=== PATIENT | male | born 1960 | race Caucasian/White ===

== ENCOUNTER → 2018-03-08 10:52 | Outpatient (CLI) | payer OTHER, SELFPAY ==
[2016-08-17 17:06] VITALS: BMI 32.9
[2018-03-08 12:02] LABS: Absolute Lymphocyte Count 0.73 X10^3/ul (0.83-4.51); Absolute Neutrophil Count 2.5 X10^3/uL (2.0-7.7); Basophil# 0.03 X10^3/uL; Basophil% 0.8 % (0-1); Eosinophil# 0.08 X10^3/uL; Eosinophils% 2.1 % (0-5); Hematocrit 46.8 % (40-54); Hemoglobin 15.8 g/dl (13.0-16.5); Lymphocyte # 0.73 X10^3/ul (4.0); Lymphocyte % 19.6 % (19-41); Mean Corp Hgb Conc 33.8 g/gl (32-36); Mean Corpuscular Hgb 29.7 pg (27.0-32.0); Mean Platelet Vol. 10.8 fl (6.2-12.0); Monocyte# 0.34 X10^3/uL; Monocyte% 9.1 % (0-10); Neutrophil # 2.54 X10^3/uL (2.7-7.7); Neutrophil % 68.1 % (47-70); Platelet Count 168 K/mm3 (150-450); RBC Distribution Width CV 12.3 % (11.6-14.6); RBC Distribution Width SD 38.9 fl (35.1-43.9); Red Blood Count 5.32 M/mm3 (4.6-6.2); White Blood Count 3.7 K/mm3 (4.4-11.0)
[2018-03-08 12:04] LABS: POSITIVE COUNT NO; POSITIVE DIFFERENTIAL NO; POSITIVE MORPHOLOGY NO
[2018-03-08 12:09] LABS: Color, Urine Yellow (Yellow); Glucose, Dipstick 50 mg/dl (Normal); Ketone-Dipstick Negative (Negative); Leukocyte Esterase-Dipstick Negative /ul (Negative); Nitrite-Dipstick Negative (Negative); Occult Blood-Urine Negative /ul (Negative); Protein-Dipstick Negative (Negative); Specific Gravity, Urine 1.025 (1.002-1.030); Urine Bilirubin Dipstick Negative (Negative); Urine Clarity Clear (Clear); Urine Urobilinogen Normal (Normal)
[2018-03-08 12:17] LABS: Microalbumin,Random Urine 34.3 mg/L (NO RANGE EST.); Microalbumin:Creatinine Ratio 16.4 mg/g CRE (<30 mg/g CRE)
[2018-03-08 12:33] LABS: ALB/GLOB Ratio 1.2 RATIO (0.9-2.4); AST(SGOT) 16 U/L (15-37); Alanine Aminotransfer ALT/SGPT 21 U/L (16-61); Albumin, Serum 3.7 g/dL (3.2-5.0); Alkaline Phosphatase 85 U/L (45-117); Anion Gap 7 (5-15); BUN 14 mg/dL (7-18); BUN/Creat Ratio 20.3 RATIO (10-20); Calcium,Total 8.6 mg/dL (8.5-10.1); Chloride 105 mmol/L (98-107); Cholesterol 193 mg/dL (200); Creatinine, Serum 0.69 mg/dL (0.70-1.30); EST Glomerular Filtration Rate 126 mL/min (>60); Est Glom Filt Rate - Afr Amer 153 mL/min (>60); Globulin 3.1 g/dL (2.2-4.2); Glucose 170 mg/dL (74-106); High Density Lipoprotein 74 mg/dL; Potassium 4.1 mmol/L (3.5-5.1); Protein, Total 6.8 g/dL (6.4-8.2); Sodium Level 140 mmol/L (136-145); Triglycerides 65 mg/dL; Very Low Density Lipoprotein 13 mg/dL (5-40)
[2018-03-08 12:36] LABS: Vitamin D,25 Hydroxy 23.1 ng/mL (29.95-100.01)
[2018-03-11 20:11] LABS: CHOLESTEROL TOTAL 200 mg/dL (100-199); HDL-C 72 mg/dL (>39); HDL-P TOTAL 37.4 umol/L (>=30.5); SMALL LDL-P 171 nmol/L (<=527); TRIGLYCERIDES 66 mg/dL (0-149)
[2018-03-12 10:09] LABS: LDL SIZE 21.4 nm (>20.5); LDL-C 115 mg/dL (0-99); LDL-P 1084 nmol/L (<1000); LP-IR SCORE ** <25 (<=45)
== END ==
LOC: LAB 10:58
PROVIDERS: Family Provider Internal Medicine; PCP Internal Medicine; Referring Provider Nurse Practitioner Gerontology; Visit Provider Nurse Practitioner Gerontology
DX: E11.9 Type 2 diabetes mellitus without complications (principal)
CPT/HCPCS: 36415; 80053; 80061; 81002; 82043; 82306; 82570; 83704; 84443; 85025

== ENCOUNTER 2018-04-29 08:34 | Day surgery (SDC) | payer OTHER, SELFPAY ==
[2018-04-29 09:00] VITALS: BP 141/82; PULSE 61; RESP 16; TEMP 36.3; O2SAT 99; BMI 32.2
[2018-04-29 09:25] LABS: Bedside Glucose 192 mg/dL (70-110)
[2018-04-29 10:15] VITALS: BP 120/72; BP 141/82; PULSE 60; RESP 16; TEMP 36
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
--- NOTE | 2018-04-29 10:19 | OP.ENDO_ITS ---
Patient Name: Mohan Agarwal Procedure Date: 04/29/2018 9:51 AM Date of : 1960 Age: 57 Procedure: Colonoscopy Indications: Screening for colorectal malignant neoplasm Providers: Parminder Christensen MD Medicines: See the Anesthesia note for documentation of the administered medications Patient Profile: This is a 57 year old male. Refer to note in patient chart for documentation of history and physical. Last Colonoscopy: none. The patient's first colonoscopy is today. Complications: No immediate complications. Procedure: Pre-Anesthesia Assessment: - Prior to the procedure, a History and Physical was performed, and patient medications and allergies were reviewed. The patient's tolerance of previous anesthesia was also reviewed. The risks and benefits of the procedure and the sedation options and risks were discussed with the patient. All questions were answered, and informed consent was obtained. Prior Anticoagulants: The patient has taken no previous anticoagulant or antiplatelet agents. ASA Grade Assessment: II - A patient with mild systemic disease. After reviewing the risks and benefits, the patient was deemed in satisfactory condition to undergo the procedure. After I obtained informed consent, the scope was passed under direct vision. Throughout the procedure, the patient's blood pressure, pulse, and oxygen saturations were monitored continuously. The adult colonoscope was introduced through the anus and advanced to the cecum, identified by appendiceal orifice and ileocecal valve. The colonoscopy was performed without difficulty. The patient tolerated the procedure well. The quality of the bowel preparation was good. Scope In: 10:00:02 AM Scope Withdrawal Time 0 hours 6 minutes 3 seconds Scope Out: 10:11:53 AM Total Procedure Duration Time 0 hours 11 minutes 51 seconds Findings: Multiple small and large-mouthed diverticula were found in the sigmoid colon, descending colon, splenic flexure and transverse colon. No biopsies or other specimens were collected for this exam. Non-bleeding internal hemorrhoids were found during retroflexion. The hemorrhoids were mild and small. The perianal and digital rectal examinations were normal. Pertinent negatives include normal prostate (size, shape, and consistency). Impression: - Diverticulosis in the sigmoid colon, in the descending colon, at the splenic flexure and in the transverse colon. No specimens collected. - Non-bleeding internal hemorrhoids. Recommendation: - Discharge patient to home. - Resume previous diet. - Continue present medications. - Repeat colonoscopy in 10 years for screening purposes. - Return to primary care physician PRN. Procedure Code(s): --- Professional --- 37103, Colonoscopy, flexible; diagnostic, including collection of specimen(s) by brushing or washing, when performed (separate procedure) Diagnosis Code(s): --- Professional --- Z12.11, Encounter for screening for malignant neoplasm of colon K64.8, Other hemorrhoids K57.30, Diverticulosis of large intestine without perforation or abscess without bleeding CPT copyright 2017 [employer]. All rights reserved. The codes documented in this report are preliminary and upon concession worker review may be revised to meet current compliance requirements. MD Parminder Romero MD 04/29/2018 10:19:08 AM This report has been signed electronically. Number of Addenda: 0 Note Initiated On: 04/29/2018 9:51 AM
[2018-04-29 10:20] VITALS: BP 105/67; BP 141/82; PULSE 62; RESP 16; O2SAT 92
[2018-04-29 10:25] VITALS: BP 113/69; BP 141/82; PULSE 64; RESP 16; O2SAT 92
[2018-04-29 10:30] VITALS: BP 117/69; BP 141/82; PULSE 54; RESP 16; TEMP 36; O2SAT 95
[2018-04-29 11:06] VITALS: BP 141/82
== END 2018-04-29 11:07 | disposition home or self-care (01) ==
LOC: EN 08:36 → AC 08:37
PROVIDERS: Family Provider Internal Medicine; PCP Internal Medicine; Referring Provider Surgery; Visit Provider Surgery
PROC: 0DJD8ZZ Inspection of Lower Intestinal Tract, Via Natural or Artificial Opening Endoscopic (ICD-10-PCS; CPT 45378; principal; 2018-04-29 09:55)
DX: Z12.11 Encounter for screening for malignant neoplasm of colon (principal); K57.30 Diverticulosis of large intestine without perforation or abscess without bleeding; K64.8 Other hemorrhoids; R73.03 Prediabetes; K21.9 Gastro-esophageal reflux disease without esophagitis; Z79.4 Long term (current) use of insulin; Z87.442 Personal history of urinary calculi; Z79.899 Other long term (current) drug therapy
CPT/HCPCS: 45378; 82962; J7120; J1610

== ENCOUNTER 2020-04-26 09:45 | Emergency (ER) | payer BC, SELFPAY ==
[2020-04-26 09:46] VITALS: BP 151/79; PULSE 64; RESP 16; TEMP 36.1; O2SAT 96; BMI 31.9
[2020-04-26 10:11] VITALS: BP 151/79; PULSE 64; RESP 16; TEMP 36.1; O2SAT 96
--- NOTE | 2020-04-26 10:13 | EKG12_ITS ---
Test Reason : SWOLLEN Blood Pressure : / mmHG Vent. Rate : 063 BPM Atrial Rate : 063 BPM P-R Int : 162 ms QRS Dur : 092 ms QT Int : 400 ms P-R-T Axes : 022 003 033 degrees QTc Int : 409 ms Normal sinus rhythm Normal ECG Confirmed by LINDSAY ROYAL, ROSALINE ([id number]), manuscript editor DHRUV ELY ([id number]) on 04/28/2020 11:08:27 AM Referred By: AMAYA Confirmed By:ROSALINE MONTOYA MD
[2020-04-26 10:31] LABS: Absolute Lymphocyte Count 1.25 X10^3/uL (0.83-4.51); Absolute Neutrophil Count 4.5 X10^3/uL (2.0-7.7); Basophil# 0.08 X10^3/uL; Basophil% 1.2 % (0-1); Eosinophil# 0.13 X10^3/uL; Hematocrit 47.3 % (40-54); Lymphocyte # 1.25 X10^3/ul (4.0); Lymphocyte % 18.9 % (19-41); Mean Corp Hgb Conc 33.8 g/dL (32-36); Mean Corpuscular Hgb 29.5 pg (27.0-32.0); Mean Corpuscular Volume 87.1 fL (80-94); Mean Platelet Vol. 9.9 fl (6.2-12.0); Monocyte% 7.6 % (0-10); NRBC Flagged by Analyzer 0 % (0-5); Neutrophil # 4.53 X10^3/uL (2.7-7.7); Neutrophil % 68.3 % (47-70); Platelet Count 184 K/mm3 (150-450); RBC Distribution Width CV 12.2 % (11.6-14.6); RBC Distribution Width SD 38.7 fl (35.1-43.9); Red Blood Count 5.43 M/mm3 (4.6-6.2); White Blood Count 6.6 K/mm3 (4.4-11.0)
[2020-04-26 10:36] LABS: Bedside Glucose 183 mg/dL (70-110)
[2020-04-26 10:48] LABS: Bacteria 0 SEEN /hpf (None Seen); Mucous, Urine 0 SEEN /hpf (<or=2+); Red Blood Cells-Urine 0 SEEN /hpf (0-5); Squamous Epithelial Cells - UA 0 SEEN /hpf (0-5); White Blood Cells 0 SEEN /hpf (0-5)
[2020-04-26 10:52] LABS: ALB/GLOB Ratio 1.1 RATIO (0.9-2.4); AST(SGOT) 11 U/L (15-37); Alanine Aminotransfer ALT/SGPT 20 U/L (16-61); Albumin, Serum 3.3 g/dL (3.2-5.0); Alkaline Phosphatase 85 U/L (45-117); Anion Gap 6 (5-15); BUN 14 mg/dL (7-18); BUN/Creat Ratio 17.5 RATIO (10-20); Calcium,Total 8.3 mg/dL (8.5-10.1); Chloride 102 mmol/L (98-107); EST Glomerular Filtration Rate 105 mL/min (>60); Est Glom Filt Rate - Afr Amer 127 mL/min (>60); Estimated Creatinine Clearance 97.38 ml/min; Globulin 2.9 g/dL (2.2-4.2); Glucose 192 mg/dL (74-106); Potassium 4.1 mmol/L (3.5-5.1); Protein, Total 6.2 g/dL (6.4-8.2); Sodium Level 138 mmol/L (136-145)
[2020-04-26 10:53] LABS: Color, Urine Yellow (Yellow); Glucose, Dipstick 250 mg/dl (Normal); Ketone-Dipstick Negative (Negative); Leukocyte Esterase-Dipstick Negative /ul (Negative); Nitrite-Dipstick Negative (Negative); Occult Blood-Urine Negative /ul (Negative); Protein-Dipstick Negative (Negative); Specific Gravity, Urine 1.015 (1.002-1.030); Urine Bilirubin Dipstick Negative (Negative); Urine Clarity Clear (Clear); Urine Urobilinogen Normal (Normal)
[2020-04-26 11:04] LABS: Amorphous Sediment 1+
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
[2020-04-26 12:24] VITALS: BP 143/79; PULSE 64; RESP 18; O2SAT 99
== END 2020-04-26 12:25 | disposition home or self-care (01) ==
PROVIDERS: Emergency Provider Emergency Medicine; PCP Internal Medicine
DX: I89.0 Lymphedema, not elsewhere classified (principal); E10.65 Type 1 diabetes mellitus with hyperglycemia; J30.9 Allergic rhinitis, unspecified; E66.9 Obesity, unspecified; Z79.4 Long term (current) use of insulin
CPT/HCPCS: 80053; 81001; 82962; 85025; 93005; 96360; 96361; 99284; J7040; A4216

== ENCOUNTER → 2021-01-06 14:05 | Outpatient (CLI) | payer BC, SELFPAY ==
[2021-01-06 14:13] LABS: Bacteria 0 SEEN /hpf (None Seen); Red Blood Cells-Urine 0 SEEN /hpf (0-5); Squamous Epithelial Cells - UA 0 SEEN /hpf (0-5)
[2021-01-06 14:35] LABS: Erythrocyte Sedimentation Rate 3 mm/hr (0-20)
[2021-01-06 14:39] LABS: Absolute Lymphocyte Count 0.42 X10^3/uL (0.83-4.51); Absolute Neutrophil Count 2.1 X10^3/uL (2.0-7.7); Basophil# 0.01 X10^3/uL; Basophil% 0.4 % (0-1); Hematocrit 49.5 % (40-54); Hemoglobin 16.9 g/dL (13.0-16.5); Lymphocyte # 0.42 X10^3/ul (0.83-4.51); Lymphocyte % 15.2 % (19-41); Mean Corp Hgb Conc 34.1 g/dL (32-36); Mean Corpuscular Hgb 29.8 pg (27.0-32.0); Mean Corpuscular Volume 87.1 fL (80-94); Mean Platelet Vol. 10.5 fl (6.2-12.0); Monocyte# 0.22 X10^3/uL; Monocyte% 7.9 % (0-10); NRBC Flagged by Analyzer 0 % (0-5); Neutrophil # 2.11 X10^3/uL (2.7-7.7); Neutrophil % 76.1 % (47-70); POSITIVE DIFFERENTIAL YES; Platelet Count 115 K/mm3 (150-450); RBC Distribution Width CV 11.9 % (11.6-14.6); RBC Distribution Width SD 38.1 fl (35.1-43.9); Red Blood Count 5.68 M/mm3 (4.6-6.2); White Blood Count 2.8 K/mm3 (4.4-11.0)
[2021-01-06 14:41] LABS: Differential Indicated SCAN CRITERIA MET
[2021-01-06 14:55] LABS: Lactic Acid 1.2 mmol/L (0.4-1.9)
[2021-01-06 14:57] LABS: ALB/GLOB Ratio 0.9 RATIO (0.9-2.4); AST(SGOT) 28 U/L (15-37); Alanine Aminotransfer ALT/SGPT 23 U/L (16-61); Albumin, Serum 3.6 g/dL (3.2-5.0); Alkaline Phosphatase 87 U/L (45-117); Anion Gap 6 (5-15); BUN 12 mg/dL (7-18); BUN/Creat Ratio 12.5 RATIO (10-20); Chloride 100 mmol/L (98-107); Cholesterol 191 mg/dL (200); Creatinine, Serum 0.96 mg/dL (0.70-1.30); EST Glomerular Filtration Rate 85 mL/min (>60); Est Glom Filt Rate - Afr Amer 103 mL/min (>60); Globulin 3.9 g/dL (2.2-4.2); Glucose 118 mg/dL (74-106); High Density Lipoprotein 75 mg/dL; PSA,Total- Diagnostic 0.42 ng/mL (0.0-4.0); Protein, Total 7.5 g/dL (6.4-8.2); Sodium Level 137 mmol/L (136-145); Triglycerides 91 mg/dL; Very Low Density Lipoprotein 18 mg/dL (5-40)
[2021-01-06 15:37] LABS: Hepatitis C Antibody Non-Reactive (Nonreactive); Vitamin D,25 Hydroxy 24.2 ng/mL
[2021-01-06 16:15] LABS: Color, Urine Yellow (Yellow); Glucose, Dipstick 250 mg/dl (Normal); Ketone-Dipstick 5 mg/dl (Negative); Leukocyte Esterase-Dipstick Negative /ul (Negative); Nitrite-Dipstick Negative (Negative); Occult Blood-Urine Negative /ul (Negative); Protein-Dipstick 30 mg/dl (Negative); Specific Gravity, Urine 1.025 (1.002-1.030); Urine Bilirubin Dipstick Negative (Negative); Urine Clarity Clear (Clear); Urine Urobilinogen Normal (Normal)
[2021-01-06 16:29] LABS: Mucous, Urine 1+ /hpf (<or=2+); White Blood Cells 0-5 SEEN /hpf (0-5)
--- NOTE | 2021-01-06 16:30 | CT_ITS ---
EXAM: CT PELVIS WITH INTRAVENOUS CONTRAST CLINICAL INDICATION: LOWER ABD PAIN TECHNIQUE: Helically acquired images were obtained of the pelvis with intravenous contrast. This CT exam was performed using one or more of the following dose reduction techniques: automated exposure control, adjustment of the mA and/or kV according to patient size, and/or use of iterative reconstruction technique. This report was created using [employer] report generation technology. Oral contrast was administered. Coronal and sagittal reformatted images were created and reviewed. CONTRAST: 100 mL ISOVUE-300 COMPARISON: None. FINDINGS: KIDNEYS AND URETERS: Simple appearing cysts of the left kidney measures 9 cm, incompletely visualized. No required imaging follow-up needed given high likelihood of benign nature. BOWEL: Sigmoid diverticulosis without evidence diverticulitis. No bowel distention. APPENDIX: No evidence of acute appendicitis. INTRAPERITONEAL SPACE: Unremarkable. No ascites or other fluid collection. No free air. BLADDER: Unremarkable. REPRODUCTIVE: Unremarkable as visualized. No mass. BONES/JOINTS: Unremarkable. No suspicious lytic or blastic abnormality. SOFT TISSUES: Mild soft tissue density in the left more than right inguinal abdominal wall suggesting sequela of previous inguinal surgery. Small periumbilical fat-containing hernia. VASCULATURE: Mild atherosclerosis of the abdominal aorta and iliac arteries. LYMPH NODES: Unremarkable. No enlarged lymph nodes. CT/Pelvis WITH IV Contrast IMPRESSION: No acute findings in the pelvis. Electronically Signed: Levon Fink MD ([place]) at 16:51 EDT , Service support ,
[2021-01-06 16:35] LABS: Microalbumin:Creatinine Ratio 34.5 mg/g CRE (<30 mg/g CRE)
[2021-01-07 14:33] LABS: Pathologist Review Reviewed
== END ==
PROVIDERS: PCP Internal Medicine; Visit Provider Internal Medicine
DX: R05.9 Cough, unspecified (principal); R10.30 Lower abdominal pain, unspecified
CPT/HCPCS: 36415; 72193; 80053; 80061; 81001; 82043; 82306; 82570; 83036; 83605; 84153; 84443; 85025; 85652; 86140; 86803; Q9967

== ENCOUNTER 2021-01-09 09:42 | Emergency (ER) | payer BC, SELFPAY ==
[2021-01-09 09:43] VITALS: BP 123/74; PULSE 65; RESP 15; TEMP 36.6; O2SAT 98; BMI 29.5
--- NOTE | 2021-01-09 10:12 | ED.RN ---
Pt. reports increasing fatigue, weakness, nausea and headache. Pt. was seen at [facility] on Sunday. Had both rapid and send out Covid test and was negative. Pt. states they have not been feeling any better.
--- NOTE | 2021-01-09 10:18 | EKG12_ITS ---
Test Reason : Blood Pressure : / mmHG Vent. Rate : 065 BPM Atrial Rate : 065 BPM P-R Int : 160 ms QRS Dur : 098 ms QT Int : 396 ms P-R-T Axes : 040 020 049 degrees QTc Int : 411 ms Normal sinus rhythm Normal ECG Confirmed by NICOLE ROYAL, JOSE MANUEL ([id number]), publication editor NICO MCDANIEL ([id number]) on 01/10/2021 1:01:00 PM Referred By: ANTONIA Confirmed By:JOSE MANUEL RIVERA MD
--- NOTE | 2021-01-09 10:18 | RAD_ITS ---
STUDY: X-RAY CHEST REASON FOR EXAM: Male, 60 years old. Cough. TECHNIQUE: Single AP portable view of the chest. COMPARISON: None. FINDINGS: Hypoventilatory changes in the right lung base but no focal infiltrate is seen. There is no demonstrated pleural abnormality. Normal size heart. Normal mediastinum and yocasta. Normal visualized pulmonary arteries. There is atherosclerotic tortuosity of the aortic arch and descending thoracic aorta. No demonstrated acute osseous changes. There is no demonstrated abnormality of the visualized soft tissue structures of the upper abdomen. RAD/Chest 1 View (Portable) IMPRESSION: No active pulmonary disease. Electronically Signed: Marito Baez MD at 11:24 EDT Tel , Service support ,
--- NOTE | 2021-01-09 10:19 | EX.ED.DYSGE1 ---
HPI History of Present Illness Chief Complaint: Fatigue Narrative Narrative: 60-year-old female presenting with generalized fatigue for 8 days. He admits to some chills and body aches. He has a dry nonproductive cough. He is a little bit short of breath at times. He had a fever on Sunday of 101 ?F which resolved. Patient also complains of a headache which is been present on and off. He denies neck pain. Patient has not had any head trauma. No history of migraine. Patient is not dizzy, lightheaded, or having visual complaints. He is taking Aleve and Tylenol with some relief but then the headache returns. He has nausea without vomiting. He is able to eat and drink food. He is making stool and urine. PFSH PFS Medical History Diabetes Home Medications insulin glargine [Basaglar Kwikpen U-100] 20 unit SQ QHS 04/29/18 [History Last Taken Unknown] fluticasone propionate 1 spray NASAL BID #1 bottle 04/26/20 [Rx Last Taken Unknown] Allergy/AdvReac Type Severity Reaction Status Date / Time No Known Allergies Allergy Verified 01/09/21 09:43 Social History Smoking Status: Never smoker ROS ROS ED Constitutional Constitutional ED: Reports chills and fever(s) Eyes Eyes: Denies blurry vision or diplopia ENT ENT ED: Denies rhinorrhea or sore throat Cardiovascular Cardiovascular: Denies chest pain or palpitations Respiratory/Chest Respiratory/Chest: Reports cough and dyspnea; Denies dyspnea on exertion or sputum Gastrointestinal Gastrointestinal: Reports nausea; Denies abdominal pain, constipation, diarrhea or vomiting Genitourinary Genitourinary ED: Denies dysuria or hematuria Musculoskeletal Musculoskeletal: Reports myalgias; Denies arthralgias or neck pain Integumentary Denies Abrasions or rash Neurologic Neurologic: Reports headache(s); Denies paresthesias or weakness EXAM Physical Exam Const Vital Signs: 01/09/21 09:43 01/09/21 10:11 01/09/21 11:16 Temperature 97.8 F Temperature Source Temporal Pulse Rate 65 63 Respiratory Rate 15 14 Respiratory Effort Normal Non-Labored Respiratory Pattern Normal Blood Pressure 123/74 H 127/73 H Blood Pressure Mean 90 91 Pulse Ox 98 96 Oxygen Delivery Method Room Air Room Air Positive well nourished General Appearance ED: NAD; Negative for pallor HEENT Reports moist mucous membranes Negative for trauma Eyes PERRL and EOMs intact bilaterally General Eye ED: Negative for pale conjunctiva or scleral icterus Neck no lymphadenopathy and supple General: Negative for tenderness Resp normal respiratory effort Auscultation: Negative for wheezes Cardio regular rate and regular rhythm GI normal to inspection, nondistended, normoactive bowel sounds Extremity normal to inspection General Extremety ED: Negative for edema or tenderness General Extremity: Negative for edema Neuro oriented x3, CN's II-XII intact bilaterally and no sensory deficits noted Sensorium / Orientation: alert Motor Exam: strength 5/5 throughout Psych mental status grossly normal Skin no rashes or lesions noted and no wounds General Skin Exam: Negative for jaundice or pallor MDM MDM MDM Narrative Medical decision making narrative: Patient presenting with generalized fatigue and has tested negative for Covid. His blood work does show that he is leukopenic and lymphopenic. Hemoglobin hematocrit are stable. Platelets are slightly low at 93. Previously they were 115. Renal function electrolytes are normal. LFTs are normal. Procalcitonin is negative. Urinalysis shows no evidence of infection but does show urinary ketones. Patient's EKG on my interpretation shows a normal sinus rhythm with a ventricular rate of 65 bpm without sign of ischemic change or dysrhythmias. Troponin is 9. Again the patient is not experiencing any chest pain. Chest x-ray on my interpretation shows no acute cardiopulmonary process and the radiologist does agree. Patient did test positive by PCR in the ED today. He will be referred for monoclonal antibodies. Patient given return precautions. Impression: 1. COVID-19 2. Thrombocytopenia Lab Data Labs: Laboratory Results - last 24 hr 01/09/21 01/09/21 01/09/21 10:05 10:05 10:05 WBC 2.5 L RBC 5.09 Hgb 15.2 Hct 44.3 MCV 87.0 MCH 29.9 MCHC 34.3 RDW Std Deviation 37.4 RDW Coeff of Uriah 11.7 Plt Count 93 L MPV 11.4 Immature Gran % (Auto) 0.800 Neut % (Auto) 82.8 H Lymph % (Auto) 11.6 L [place] % (Auto) 4.8 Eos % (Auto) 0.0 Baso % (Auto) 0.0 Absolute Neuts (auto) 2.1 Absolute Lymphs (auto) 0.29 L Nucleated RBC % 0 Platelet Estimate MOD DEC Sodium 135 L Potassium 4.5 Chloride 99 Carbon Dioxide 29.0 Anion Gap 7 BUN 13 Creatinine 0.80 Estim Creat Clear Calc 96.19 Est GFR (MDRD) Af Amer 127 Est GFR (MDRD) Non-Af 105 BUN/Creatinine Ratio 16.3 Glucose 180 H Calcium 8.2 L Total Bilirubin 0.40 AST 32 ALT 22 Alkaline Phosphatase 73 Troponin I High Sens 9 Total Protein 6.6 Albumin 3.1 L Globulin 3.5 Albumin/Globulin Ratio 0.9 Procalcitonin 0.06 Urine Color Urine Clarity Urine pH Ur Specific [place] Urine Protein Urine Glucose (UA) Urine Ketones Urine Occult Blood Urine Nitrite Urine Bilirubin Urine Urobilinogen Ur Leukocyte Esterase Urine RBC Urine WBC Ur Squamous Epith Cells Urine Bacteria Urine Mucus COVID-19 (VITALIY) 01/09/21 01/09/21 10:25 11:00 WBC RBC Hgb Hct MCV MCH MCHC RDW Std Deviation RDW Coeff of Uriah Plt Count MPV Immature Gran % (Auto) Neut % (Auto) Lymph % (Auto) [place] % (Auto) Eos % (Auto) Baso % (Auto) Absolute Neuts (auto) Absolute Lymphs (auto) Nucleated RBC % Platelet Estimate Sodium Potassium Chloride Carbon Dioxide Anion Gap BUN Creatinine Estim Creat Clear Calc Est GFR (MDRD) Af Amer Est GFR (MDRD) Non-Af BUN/Creatinine Ratio Glucose Calcium Total Bilirubin AST ALT Alkaline Phosphatase Troponin I High Sens Total Protein Albumin Globulin Albumin/Globulin Ratio Procalcitonin Urine Color Yellow Urine Clarity Sl. Cloudy Urine pH 5.0 Ur Specific [place] 1.025 Urine Protein 30 H Urine Glucose (UA) 250 H Urine Ketones 150 A* Urine Occult Blood Negative Urine Nitrite Negative Urine Bilirubin Negative Urine Urobilinogen 1 H Ur Leukocyte Esterase Negative Urine RBC 0 SEEN Urine WBC 0 SEEN Ur Squamous Epith Cells 0 SEEN Urine Bacteria 0 SEEN Urine Mucus 0 SEEN COVID-19 (VITALIY) Detected Radiography Diagnostic Testing: Clinical Impression(s) from Imaging Studies Chest X-Ray 01/09/21 10:18 IMPRESSION: No active pulmonary disease. Electronically Signed: Marito Baez MD at 11:24 EDT Tel , Service support , Discharge Plan Triage Chief Complaint: Fatigue ED Provider: Catracho Moseley Dx/Rx/DC Orders Instructions: Coronavirus Disease 2019 (COVID-19): Caring for Yourself or Others Prescriptions: No Action insulin glargine [Basaglar KwikPen U-100 Insulin] 100 UNIT/ML insulin pen 20 unit SQ QHS RF: 0 fluticasone propionate 1 SPRAY spray,suspension 1 spray NASAL BID Qty: 1 RF: 2 Other Ambulatory Orders: COVID Outpatient Monoclonal Antibody Referral (Routine) Timeframe: 1 Day Facility: [facility] - Location: [facility] Ordered By: Dr. Catracho Moseley Primary Care Provider: Alana Mills Referrals: Alana Mills DO [Primary Care Provider] - Disposition Disposition: Home, Self Care
[2021-01-09] MEDS: Metoclopramide 10 MG/2 ML Vial IV (10:31)
[2021-01-09] MEDS: DiphenhydrAMINE 50 MG/ML Syringe 25 MG IV (10:31)
[2021-01-09 10:37] LABS: Absolute Lymphocyte Count 0.29 X10^3/uL (0.83-4.51); Absolute Neutrophil Count 2.1 X10^3/uL (2.0-7.7); Differential Indicated SCAN CRITERIA MET; Hematocrit 44.3 % (40-54); Hemoglobin 15.2 g/dL (13.0-16.5); Lymphocyte # 0.29 X10^3/ul (0.83-4.51); Lymphocyte % 11.6 % (19-41); Mean Corp Hgb Conc 34.3 g/dL (32-36); Mean Corpuscular Hgb 29.9 pg (27.0-32.0); Mean Platelet Vol. 11.4 fl (6.2-12.0); Monocyte# 0.12 X10^3/uL; Monocyte% 4.8 % (0-10); NRBC Flagged by Analyzer 0 % (0-5); Neutrophil # 2.07 X10^3/uL (2.7-7.7); Neutrophil % 82.8 % (47-70); POSITIVE COUNT YES; POSITIVE DIFFERENTIAL YES; Platelet Count 93 K/mm3 (150-450); RBC Distribution Width CV 11.7 % (11.6-14.6); RBC Distribution Width SD 37.4 fl (35.1-43.9); Red Blood Count 5.09 M/mm3 (4.6-6.2); White Blood Count 2.5 K/mm3 (4.4-11.0)
[2021-01-09 10:49] LABS: ALB/GLOB Ratio 0.9 RATIO (0.9-2.4); AST(SGOT) 32 U/L (15-37); Alanine Aminotransfer ALT/SGPT 22 U/L (16-61); Albumin, Serum 3.1 g/dL (3.2-5.0); Alkaline Phosphatase 73 U/L (45-117); Anion Gap 7 (5-15); BUN 13 mg/dL (7-18); BUN/Creat Ratio 16.3 RATIO (10-20); Calcium,Total 8.2 mg/dL (8.5-10.1); Chloride 99 mmol/L (98-107); EST Glomerular Filtration Rate 105 mL/min (>60); Est Glom Filt Rate - Afr Amer 127 mL/min (>60); Estimated Creatinine Clearance 96.19 ml/min; Globulin 3.5 g/dL (2.2-4.2); Glucose 180 mg/dL (74-106); Potassium 4.5 mmol/L (3.5-5.1); Protein, Total 6.6 g/dL (6.4-8.2); Sodium Level 135 mmol/L (136-145); Troponin-I HS 9 pg/mL (3.0-78.0)
[2021-01-09 11:01] LABS: Procalcitonin 0.06 ng/mL (0.00-0.09)
[2021-01-09 11:03] LABS: Platelet Estimate MOD DEC (ADEQ)
[2021-01-09 11:03] LABS: Bacteria 0 SEEN /hpf (None Seen); Mucous, Urine 0 SEEN /hpf (<or=2+); Red Blood Cells-Urine 0 SEEN /hpf (0-5); Squamous Epithelial Cells - UA 0 SEEN /hpf (0-5); White Blood Cells 0 SEEN /hpf (0-5)
[2021-01-09 11:10] LABS: Color, Urine Yellow (Yellow); Glucose, Dipstick 250 mg/dl (Normal); Leukocyte Esterase-Dipstick Negative /ul (Negative); Nitrite-Dipstick Negative (Negative); Occult Blood-Urine Negative /ul (Negative); Protein-Dipstick 30 mg/dl (Negative); Specific Gravity, Urine 1.025 (1.002-1.030); Urine Bilirubin Dipstick Negative (Negative); Urine Clarity Sl. Cloudy (Clear); Urine Urobilinogen 1 mg/dl (Normal)
[2021-01-09 11:16] VITALS: BP 127/73; PULSE 63; RESP 14; O2SAT 96
[2021-01-09 11:24] LABS: Ketone-Dipstick 150 mg/dl (Negative)
[2021-01-09 13:18] VITALS: BP 117/65; PULSE 67; RESP 14; O2SAT 98
[2021-01-10 12:53] LABS: Pathologist Review Reviewed
== END 2021-01-09 13:19 | disposition home or self-care (01) ==
PROVIDERS: Emergency Provider Student in an Organized Health Care Education/Training Program; PCP Internal Medicine
DX: U07.1 COVID-19 (principal); D69.6 Thrombocytopenia, unspecified
CPT/HCPCS: 71045; 80053; 81001; 84145; 84484; 85025; 87635; 93005; 96374; 96375; 99284; J7030; U0005; U0003

== ENCOUNTER → 2021-01-28 15:52 | Outpatient (CLI) | payer BC, SELFPAY ==
[2021-01-28 17:32] LABS: Absolute Lymphocyte Count 0.95 X10^3/uL (0.83-4.51); Absolute Neutrophil Count 3.7 X10^3/uL (2.0-7.7); Basophil# 0.04 X10^3/uL; Basophil% 0.8 % (0-1); Eosinophil# 0.05 X10^3/uL; Hematocrit 43.9 % (40-54); Lymphocyte # 0.95 X10^3/ul (0.83-4.51); Lymphocyte % 18.4 % (19-41); Mean Corp Hgb Conc 34.2 g/dL (32-36); Mean Corpuscular Hgb 29.6 pg (27.0-32.0); Mean Corpuscular Volume 86.6 fL (80-94); Mean Platelet Vol. 10.7 fl (6.2-12.0); Monocyte# 0.41 X10^3/uL; Monocyte% 7.9 % (0-10); NRBC Flagged by Analyzer 0 % (0-5); Neutrophil # 3.69 X10^3/uL (2.7-7.7); Neutrophil % 71.5 % (47-70); Platelet Count 166 K/mm3 (150-450); RBC Distribution Width CV 12.2 % (11.6-14.6); RBC Distribution Width SD 38.1 fl (35.1-43.9); Red Blood Count 5.07 M/mm3 (4.6-6.2); White Blood Count 5.2 K/mm3 (4.4-11.0)
== END ==
PROVIDERS: PCP Internal Medicine; Referring Provider Internal Medicine; Visit Provider Internal Medicine
DX: R79.89 Other specified abnormal findings of blood chemistry (principal)
CPT/HCPCS: 36415; 85025